=== PATIENT | male | born 1990 | race Caucasian/White ===

== ENCOUNTER 2016-09-13 19:09 | Emergency (ER) | payer OTHER ==
[~2016-09-13] VITALS: Ht 167.6 cm; Wt 96.0 kg
[2016-09-13 19:14] VITALS: Ht 167.6 cm; Wt 96.0 kg
[2016-09-13] MEDS ORDERED: DIPHTH/TET/ACEL PERTUSS (ADULT) 0.5 ML VIAL IM* ONE (20:30)
[2016-09-13] MEDS ORDERED: LIDOCAINE 2% (MDV) 20 ML INJ INJ ONE (20:30)
[2016-09-13] MEDS ORDERED: HYDR-906 PO (21:46)
[2016-09-13] MEDS ORDERED: CEPH-443 PO (21:46)
[2016-09-13 22:07] VITALS: BP 133/65; PULSE 75; RESP 20; TEMP 98
--- NOTE | 2016-09-15 15:12 | ERD ---
ER Documentation Chief Complaint Date/Time DATE: 09/15/16 TIME: 15:01 Chief Complaint laceration left 2nd and 3rd finger HPI 26 year old male presents with deep laceration to the volar aspect of second and third finger from an injury with a piece of metal within couple hours prior being seen. Patient states it is bleeding a lot, he denies being on any blood thinners. He denies restricted range of motion. States pain is moderate in severity. Cannot remember last tetanus ROS All systems reviewed and are negative except as per history of present illness. Medications Home Meds Active Scripts Hydrocodone/Acetaminophen (Powell 5-325 Tablet) 1 Each Tablet, 1 TAB PO Q6H Y for PAIN, #30 TAB Prov:MICHELET RITTER PA-C 09/13/16 Cephalexin* (Keflex*) 500 Mg Capsule, 500 MG PO QID for 7 Days, CAP Prov:MICHELET RITTER PA-C 09/13/16 Allergies Allergies: Coded Allergies: No Known Allergy (Unverified , 09/13/16) PMhx/Soc Medical and Surgical Hx: pt denies Medical Hx, pt denies Surgical Hx Hx Alcohol Use: No Hx Substance Use: No Hx Tobacco Use: No Smoking Status: Never smoker Physical Exam Vitals Vital Signs Date Time Temp Pulse Resp B/P Pulse Ox O2 Delivery O2 Flow Rate FiO2 09/13/16 22:07 98.0 75 20 133/65 99 Room Air 09/13/16 19:14 98.3 72 20 152/91 99 Physical Exam General: WD/WN, in no apparent distress, non-toxic appearing HENT: NC/AT Eyes: Conjunctiva normal Neck: Supple Pulm: Normal labored breathing CV: Good capillary refill GI: Non-distended, no guarding Back: No masses Ext: No clubbing, cyanosis, or edema Neuro: Moves on all fours, no neuro deficits, sensation intact Skin: 2.2cm flap laceration on volar 2nd digit and 3cm flap laceration on 3rd digit. No restricted ROM. No tendon or arterial injury noted. No FB Psych: Normal mood Results 24 hrs Current Medications Medications (Trade) Dose Ordered Sig/Gi Route PRN Reason Start Time Stop Time Status Last Admin Dose Admin Diphtheria/ Tetanus/Acell Pertussis (Adacel) 0.5 ml ONCE ONCE IM* 09/13/16 20:30 09/13/16 20:31 DC 09/13/16 20:47 Lidocaine (Xylocaine 2% (Mdv) 20 ml) 20 ml ONCE ONCE INJ 09/13/16 20:30 09/13/16 20:31 DC 09/13/16 20:46 Procedures/MDM MDM: 26-year-old male patient presents to the ER with 2 lacerations on the second and third volar aspect of the right hand. My clinical suspicion for fracture, nerve/tendon/arterial injury is low due to physical examination. In the ED, patient was given TDAP and prepared for wound closure. Procedure listed below. hemodynamically stable and neurovascularly intact pre and post treatment. Prescription Keflex was given. I discussed with patient that he will need to follow-up with a hand specialist next couple days. Discussed to return to this facility or primary care physician in 10 days for suture removal. Discussed to return to the ER for any signs of infection or if condition worsens. Patient expressed agreement and understanding of the plan. PROCEDURE NOTE: Consent was obtained. Patient was positioned appropriately. Copious amount of normal saline was used for irrigation. Wound was cleansed with Betadine. [id number] of lidocaine 1% without epinephrine was used for digital block of 2nd and third digit . Patient was sterile draped with wound exposed. Wound was closed with good approximation with 16 x 6-0 Prolene sutures. Procedure tolerated without complications. Wound dressed with bacitracin and sterile gauze and finger splint. Departure Diagnosis: Primary Impression: Finger laceration Condition: Stable Patient Instructions: Laceration, Hand Referrals: [facility] Additional Instructions: FOLLOW-UP WITH HAND CLINIC Take all medicines as directed. Return to this facility if you are not improving as expected. Follow up with your physician to remove the stitches 10 days. You have been given a medicine which may cause drowsiness.DO NOT DRIVE OR OPERATE DANGEROUS MACHINERY while taking this medicine! MICHELET RITTER PA-C Sep 15, 2016 15:11
== END 2016-09-13 22:08 | disposition home or self-care (01) ==
LOC: FTE 19:09
DX: S61.211A Laceration without foreign body of left index finger without damage to nail, initial encounter (principal); S61.213A Laceration without foreign body of left middle finger without damage to nail, initial encounter; W26.8XXA Contact with other sharp object(s), not elsewhere classified, initial encounter; Y92.9 Unspecified place or not applicable; Z23 Encounter for immunization
CPT/HCPCS: 90471; 90715